=== PATIENT | male | born 1970 | race Caucasian/White ===

== ENCOUNTER 2019-05-14 23:31 | Emergency (ER) | payer OTHER ==
--- NOTE | 2019-05-15 00:52 | ER ---
Nurse's Notes [facility] Name: Rufus Brown Age: 48 yrs Sex: Male : 1970 Arrival Date: 05/14/2019 Time: 23:38 Bed 26 Private MD: Diagnosis: Fall on same level, unspecified;Laceration without foreign body of scalp;Superficial injury of head Presentation: 05/14 23:28 Presenting complaint: EMS states: that pt has been drinking and tripped going into the kitchen; hitting head causing laceration to back of it Negative LOC. Care prior to arrival: Bleeding of injury controlled. Injury dressed. Glucose check: 153. Mechanism of Injury: Fall from standing position. Trauma event details: Injury occurred in the [facility], Injury occurred: at home. Injury occurred: May 14, 2019 Injury occurred at: 23:00. 23:28 Acuity: MARIANA 3 23:28 Method Of Arrival: EMS: [facility] 23:28 Transition of care: patient was not received from another setting of care. Onset of symptoms was May 14, 2019 at 23:00. Risk Assessment: Do you want to hurt yourself or someone else? Patient reports no desire to harm self or others. Initial Sepsis Screen: Does the patient meet any 2 criteria? No. Patient's initial sepsis screen is negative. Does the patient have a suspected source of infection? No. Patient's initial sepsis screen is negative. Triage Assessment: 23:28 General: Appears in no apparent distress. comfortable, Behavior is calm, cooperative, fc appropriate for age. Pain: Denies pain. EENT: No deficits noted. Neuro: Level of Consciousness is awake, alert, obeys commands, Oriented to person, place, time, situation, Appropriate for age Certified Personal Chef are equal bilaterally Moves all extremities. 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 Gait is unsteady, Speech slow. Pupils are PERRLA, Denies headache photophobia. Cardiovascular: No deficits noted. Respiratory: No deficits noted. GI: No deficits noted. : No deficits noted. Derm: Skin is pink, warm \T\ dry. Musculoskeletal: No signs and/or symptoms reported regarding the musculoskeletal system. Injury Description: Laceration sustained to scalp is clean, 2.6 to 7.5 cm long, bleeding moderately, was sustained 30-60 minutes ago. a small amount of bleeding noted at this time. A dressing was applied. Historical: - Allergies: 05/15 00:52 No Known Allergies; fc - Home Meds: 00:52 Zoloft Oral once daily [Active]; Lisinopril Oral once daily [Active]; fc - PMHx: 00:52 ALS; Depression; Hypertension; fc - PSHx: 00:52 knee surg; fc - Immunization history: Last tetanus immunization: - up to date. - Coronavirus screen:: The patient has NOT traveled to [place], [place], or [place] in the past 14 days. - Social history:: Smoking status: Patient denies any tobacco usage or history of. Patient uses alcohol, claims drinking about a 6 pack/day. Patient/guardian denies using street drugs. - Ebola Screening: : Patient negative for fever greater than or equal to 101.5 degrees Fahrenheit, and additional compatible Ebola Virus Disease symptoms Patient denies exposure to infectious person Patient denies travel to an Ebola-affected area in the 21 days before illness onset. Screenin/25 23:28 Abuse screen: Denies threats or abuse. Tuberculosis screening: No symptoms or risk fc factors identified. 23:28 Nutritional screening: No deficits noted. Fall Risk Fall in past 12 months (25 points). fc Secondary diagnosis (15 points) ALS. No IV (0 pts). Ambulatory Aid- Crutches/Cane/Walker (15 pts). Gait- Weak (10 pts.). Mental Status- Overestimates/Forgets Limitations (15 pts.). Total Lazaro Fall Scale indicates High Risk Score (45 or more points). Fall prevention measures have been instituted. Side Rails Up X 2 Placed Close to Nursing Station Frequent Obs/Assessments Occuring As available patient and family educated on Fall Prevention Program and Strategies. Assessment: 23:40 Reassessment: No changes from previously documented assessment. Patient is alert, fc oriented x 3, equal unlabored respirations, skin warm/dry/pink. see triage assessment. 05/15 00:15 Reassessment: No changes from previously documented assessment. Patient is alert, fc oriented x 3, equal unlabored respirations, skin warm/dry/pink. Pt is pending CT Scan. 00:35 Reassessment: No changes from previously documented assessment. Patient is alert, fc oriented x 3, equal unlabored respirations, skin warm/dry/pink. Pt has refused CT Scan and understands consequences. Crys MAHAN has stapled laceration with 5 reagan. Vital Signs: 05/14 23:28 BP 127 / 96; Pulse 83; Resp 18; Temp 98.7(O); Pulse Ox 96% on R/A; Weight 90.72 kg (R); fc Height 5 ft. 10 in. (177.80 cm) (R); Pain 0/10; 05/15 00:00 BP 121 / 82; Pulse 86; Resp 20; Pulse Ox 97% on R/A; Pain 0/10; fc 00:30 BP 124 / 85; Pulse 84; Resp 20; Pulse Ox 97% on R/A; Pain 0/10; fc 00:49 BP 115 / 82; Pulse 87; Resp 20; Pulse Ox 98% on R/A; Pain 2/10; fc 05/14 23:28 Body Mass Index 28.70 (90.72 kg, 177.80 cm) fc [place] Coma Score: 05/14 23:28 Eye Response: spontaneous(4). Verbal Response: oriented(5). Motor Response: obeys fc commands(6). Total: 15. 05/15 00:30 Eye Response: spontaneous(4). Verbal Response: oriented(5). Motor Response: obeys fc commands(6). Total: 15. Trauma Score (Adult): 05/14 23:28 Eye Response: spontaneous(1); Verbal Response: oriented(1); Motor Response: obeys fc commands(2); Systolic BP: > 89 mm Hg(4); Respiratory Rate: 10 to 29 per min(4); [place] Score: 15; Trauma Score: 12 05/15 00:30 Eye Response: spontaneous(1); Verbal Response: oriented(1); Motor Response: obeys fc commands(2); Systolic BP: > 89 mm Hg(4); Respiratory Rate: 10 to 29 per min(4); [place] Score: 15; Trauma Score: 12 ED Course: 05/14 23:28 Patient has correct armband on for positive identification. Bed in low position. Call fc light in reach. Side rails up X2. 23:28 Arm band placed on Patient placed in an exam room, on a stretcher. fc 23:28 Patient maintains SpO2 saturation greater than 95% on room air. Thermoregulation: warm fc blanket given to patient. 23:38 Patient arrived in ED. fc 23:44 Triage completed. fc 23:45 Crys Jeffers FNP-C is [facility]. snw 23:45 Sachin Rodriguez MD is Attending Physician. snw 23:52 Wound care: to laceration located on scalp was cleaned with Hibiclens, irrigated with fc normal saline, Patient tolerated well. 23:53 Wound care:. jp3 05/15 00:35 Assist provider with laceration repair on right side of the back of head that was fc between 2.6 to 7.5 cm using reagan. Set up tray. Performed by Crys SHEARER Patient tolerated well. 00:52 Patient did not have IV access during this emergency room visit. fc 00:55 Dressings: [place] 4X4s. fc Administered Medications: No medications were administered Outcome: 00:49 Discharged to home via wheelchair, with friend. fc 00:49 Condition: good 00:49 Discharge instructions given to patient, friend, Instructed on discharge instructions, follow up and referral plans. wound care, Demonstrated understanding of instructions, follow-up care, medications, wound care, Prescriptions given X none 00:51 Discharge ordered by . snw 01:09 Patient left the ED. fc Signatures: Crys Jeffres FNP-C FNP-Kristy Carpio, RN RN Crisit Dunbar jp3
--- NOTE | 2019-05-15 00:52 | EDPHYS ---
Physician Documentation [facility] [place], [place] Name: Rufus Brown Age: 48 yrs Sex: Male : 1970 Arrival Date: 05/14/2019 Time: 23:38 Bed 26 Private MD: ED Physician Sachin Rodriguez HPI: 05/15 00:28 This 48 yrs old Male presents to ER via EMS with complaints of Fall Injury. snw 00:28 Details of fall: The patient fell from an upright position, while walking. Onset: The snw symptoms/episode began/occurred suddenly, just prior to arrival. Associated injuries: The patient sustained injury to the head, laceration, 3 cm(s), of the right side of the back of head. Severity of symptoms: At their worst the symptoms were moderate. The patient has not experienced similar symptoms in the past. It is unknown whether or not the patient has recently seen a physician. Pt is a daily drinker with MS. Denies LOC. Will CT prior to beatris 2nd to ETOH. Historical: - Allergies: 00:52 No Known Allergies; fc - Home Meds: 00:52 Zoloft Oral once daily [Active]; Lisinopril Oral once daily [Active]; fc - PMHx: 00:52 ALS; Depression; Hypertension; fc - PSHx: 00:52 knee surg; fc - Immunization history: Last tetanus immunization: - up to date. - Coronavirus screen:: The patient has NOT traveled to [place], [place], or [place] in the past 14 days. - Social history:: Smoking status: Patient denies any tobacco usage or history of. Patient uses alcohol, claims drinking about a 6 pack/day. Patient/guardian denies using street drugs. - Ebola Screening: : Patient negative for fever greater than or equal to 101.5 degrees Fahrenheit, and additional compatible Ebola Virus Disease symptoms Patient denies exposure to infectious person Patient denies travel to an Ebola-affected area in the 21 days before illness onset. ROS: 00:27 Constitutional: Negative for fever, chills, and weight loss, Eyes: Negative for injury, snw pain, redness, and discharge, ENT: Negative for injury, pain, and discharge, Neck: Negative for injury, pain, and swelling, Cardiovascular: Negative for chest pain, palpitations, and edema, Respiratory: Negative for shortness of breath, cough, wheezing, and pleuritic chest pain, Abdomen/GI: Negative for abdominal pain, nausea, vomiting, diarrhea, and constipation, Back: Negative for injury and pain, : Negative for injury, bleeding, discharge, and swelling, MS/Extremity: Negative for injury and deformity, Skin: Negative for injury, rash, and discoloration. 00:27 Neuro: Positive for laceration to right side of head s/p fall. Exam: 00:21 Eyes: Pupils equal round and reactive to light, extra-ocular motions intact. Lids and snw lashes normal. Conjunctiva and sclera are non-icteric and not injected. Cornea within normal limits. Periorbital areas with no swelling, redness, or edema. ENT: Nares patent. No nasal discharge, no septal abnormalities noted. Tympanic membranes are normal and external auditory canals are clear. Oropharynx with no redness, swelling, or masses, exudates, or evidence of obstruction, uvula midline. Mucous membranes moist. Neck: Trachea midline, no thyromegaly or masses palpated, and no cervical lymphadenopathy. Supple, full range of motion without nuchal rigidity, or vertebral point tenderness. No Meningismus. Chest/axilla: Normal chest wall appearance and motion. Nontender with no deformity. No lesions are appreciated. Cardiovascular: Regular rate and rhythm with a normal S1 and S2. No gallops, murmurs, or rubs. Normal PMI, no JVD. No pulse deficits. Respiratory: Lungs have equal breath sounds bilaterally, clear to auscultation and percussion. No rales, rhonchi or wheezes noted. No increased work of breathing, no retractions or nasal flaring. Abdomen/GI: Soft, non-tender, with normal bowel sounds. No distension or tympany. No guarding or rebound. No evidence of tenderness throughout. Back: No spinal tenderness. No costovertebral tenderness. Full range of motion. MS/ Extremity: Pulses equal, no cyanosis. Neurovascular intact. Full, normal range of motion. Neuro: Awake and alert, GCS 15, oriented to person, place, time, and situation. Cranial nerves II-XII grossly intact. Motor strength 5/5 in all extremities. Sensory grossly intact. Cerebellar exam normal. Normal gait. Psych: Awake, alert, with orientation to person, place and time. Behavior, mood, and affect are within normal limits. 00:21 Constitutional: The patient appears alert, awake, smells of alcohol, ETOH. 00:21 Head/face: Noted is mild chronic appearing scabbing to right face, right parietal area with v shaped laceration, cleaned with betadine and hibiclens. Will CT head and Cspine prior to stapling, no active bleeding. 00:21 Skin: scabbing to face. Vital Signs: 05/14 23:28 BP 127 / 96; Pulse 83; Resp 18; Temp 98.7(O); Pulse Ox 96% on R/A; Weight 90.72 kg (R); fc Height 5 ft. 10 in. (177.80 cm) (R); Pain 0/10; 05/15 00:00 BP 121 / 82; Pulse 86; Resp 20; Pulse Ox 97% on R/A; Pain 0/10; fc 00:30 BP 124 / 85; Pulse 84; Resp 20; Pulse Ox 97% on R/A; Pain 0/10; fc 00:49 BP 115 / 82; Pulse 87; Resp 20; Pulse Ox 98% on R/A; Pain 2/10; fc 05/14 23:28 Body Mass Index 28.70 (90.72 kg, 177.80 cm) fc [place] Coma Score: 05/14 23:28 Eye Response: spontaneous(4). Verbal Response: oriented(5). Motor Response: obeys fc commands(6). Total: 15. 05/15 00:30 Eye Response: spontaneous(4). Verbal Response: oriented(5). Motor Response: obeys fc commands(6). Total: 15. Trauma Score (Adult): 05/14 23:28 Eye Response: spontaneous(1); Verbal Response: oriented(1); Motor Response: obeys fc commands(2); Systolic BP: > 89 mm Hg(4); Respiratory Rate: 10 to 29 per min(4); [place] Score: 15; Trauma Score: 12 05/15 00:30 Eye Response: spontaneous(1); Verbal Response: oriented(1); Motor Response: obeys fc commands(2); Systolic BP: > 89 mm Hg(4); Respiratory Rate: 10 to 29 per min(4); [place] Score: 15; Trauma Score: 12 MDM: 05/14 23:55 Patient medically screened. snw 05/15 00:52 Data reviewed: vital signs, nurses notes. Data interpreted: Pulse oximetry: on room air snw is 98 %. Interpretation: normal. Counseling: I had a detailed discussion with the patient and/or guardian regarding: the historical points, exam findings, and any diagnostic results supporting the discharge/admit diagnosis, the need for outpatient follow up, to return to the emergency department if symptoms worsen or persist or if there are any questions or concerns that arise at home. Special discussion: Based on the patient's history, exam and DX evaluation, there is no indication for emergent intervention or inpatient [place]. It is understood by the patient/guardian that if the SXs persist or worsen they need to return immediately for re-evaluation. Based on the history and exam findings, there is no indication for further emergent testing or inpatient evaluation. I discussed with the patient/guardian the need to see the primary care provider for further evaluation of the symptoms. 05/15 00:49 Order name: Wound Care; Complete Time: 01:07 snw 05/15 00:49 Order name: Wound dressing; Complete Time: : snw Administered Medications: No medications were administered Disposition: 02:12 Co-signature as Attending Physician, Sachin Rodriguez MD. rn Disposition: 05/15/19 00:51 Discharged to Home. Impression: Fall on same level, unspecified, Laceration without foreign body of scalp, Superficial injury of head. - Condition is Stable. - Discharge Instructions: Facial or Scalp Contusion, Head Injury, Adult, Fall Prevention in the Home, Laceration Care, Adult, Stitches, Beatris, or Adhesive Wound Closure. - Medication Reconciliation Form, Thank You Letter, Antibiotic Education, Prescription Opioid Use form. - Follow up: Emergency Department; When: As needed; Reason: Worsening of condition. Follow up: Private Physician; When: 2 - 3 days; Reason: Recheck today's complaints, Continuance of care, Re-evaluation by your physician. Signatures: Dispatcher [employer] EDCrys Yip FNP-C GLUE SIZE MACHINE OPERATOR-Csnw Kristy Davis RN RN Sachin Candelaria MD MD paid internship: (The following items were deleted from the chart) 00:52 00:51 05/15/2019 00:51 Discharged to Home. Impression: Fall on same level, unspecified; snw Laceration without foreign body of scalp. Condition is Stable. Forms are Medication Reconciliation Form, Thank You Letter, Antibiotic Education, Prescription Opioid Use. Follow up: Emergency Department; When: As needed; Reason: Worsening of condition. Follow up: Private Physician; When: 2 - 3 days; Reason: Recheck today's complaints, Continuance of care, Re-evaluation by your physician. snw 01:09 00:52 05/15/2019 00:51 Discharged to Home. Impression: Fall on same level, unspecified; fc Laceration without foreign body of scalp; Superficial injury of head. Condition is Stable. Discharge Instructions: Facial or Scalp Contusion, Head Injury, Adult, Fall Prevention in the Home, Laceration Care, Adult, Stitches, Inez, or Adhesive Wound Closure. Forms are Medication Reconciliation Form, Thank You Letter, Antibiotic Education, Prescription Opioid Use. Follow up: Emergency Department; When: As needed; Reason: Worsening of condition. Follow up: Private Physician; When: 2 - 3 days; Reason: Recheck today's complaints, Continuance of care, Re-evaluation by your physician. snw
[2019-05-15 01:17] VITALS: BP 115/82; O2SAT 98
== END 2019-05-15 01:09 | disposition home or self-care (01) ==
LOC: ER 23:31
DX: S01.01XA Laceration without foreign body of scalp, initial encounter (principal); W01.10XA Fall on same level from slipping, tripping and stumbling with subsequent striking against unspecified object, initial encounter; Y93.9 Activity, unspecified; Y92.010 Kitchen of single-family (private) house as the place of occurrence of the external cause
CPT/HCPCS: 99284